=== PATIENT | female | born 1990 | race American Indian/Alaskan Native ===

== ENCOUNTER 2018-10-09 09:45 | Emergency (ER) | payer MEDICAID ==
[2018-10-09 10:06] VITALS: BP 130/77
--- NOTE | 2018-10-09 10:40 | Emergency Department Report ---
ED GI Bleed HPI - General Chief complaint: GI Bleed Stated complaint: BACK PAIN/BLEEDING FROM RECTUM Time Seen by Provider: 10/09/18 10:18 Source: patient Mode of arrival: Ambulatory Limitations: No Limitations - History of Present Illness Initial comments: reports low back (L) pain for a few days worse with movement better with rest states noticed streaks of BRB after bowel movements x 2 no abd pain, nvdc complaint: blood on toilet paper -: Gradual, days(s) (3) Radiation: none Severity scale (0 -10): 7 Quality: painless Consistency: intermittent Improves with: none Worsens with: none Associated Symptoms: denies other symptoms - Related Data Previous Rx's Medication Instructions Recorded Last Taken Type Docusate Sodium [Colace] 100 mg PO BID PRN #20 capsule 10/09/18 Unknown Rx Hydrocortisone [Anucort-HC SUPPOS] 25 mg RC BID #12 supp.rect 10/09/18 Unknown Rx cephALEXin [Keflex] 500 mg PO Q12HR #14 cap 10/09/18 Unknown Rx Allergies Allergy/AdvReac Type Severity Reaction Status Date / Time No Known Allergies Allergy Verified 10/09/18 10:03 ED Review of Systems ROS: Stated complaint: BACK PAIN/BLEEDING FROM RECTUM Other details as noted in HPI Comment: All other systems reviewed and negative Gastrointestinal: as per HPI, hematochezia Musculoskeletal: as per HPI, back pain ED Past Medical Hx - Past Medical History Previous Medical History?: No - Surgical History Past Surgical History?: No - Social History Smoking Status: Current Every Day Smoker - Medications Home Medications: Home Medications Medication Instructions Recorded Confirmed Last Taken Type Docusate Sodium [Colace] 100 mg PO BID PRN #20 capsule 10/09/18 Unknown Rx Hydrocortisone [Anucort-HC SUPPOS] 25 mg RC BID #12 supp.rect 10/09/18 Unknown Rx cephALEXin [Keflex] 500 mg PO Q12HR #14 cap 10/09/18 Unknown Rx ED Physical Exam - General Limitations: No Limitations General appearance: alert, in no apparent distress - Head Head exam: Present: atraumatic, normocephalic - Eye Eye exam: Present: normal appearance - ENT ENT exam: Present: mucous membranes moist - Neck Neck exam: Present: normal inspection - Respiratory Respiratory exam: Present: normal lung sounds bilaterally. Absent: respiratory distress - Cardiovascular Cardiovascular Exam: Present: regular rate, normal rhythm. Absent: systolic murmur, diastolic murmur, rubs, gallop - GI/Abdominal GI/Abdominal exam: Present: soft, normal bowel sounds. Absent: distended, tenderness, guarding, rebound - Rectal Rectal exam: Present: hemorrhoids (internal, no blood, exercise physiologist certified Sandhya RN) - Extremities Exam Extremities exam: Present: normal inspection, full ROM - Back Exam Back exam: Present: normal inspection, full ROM, paraspinal tenderness. Absent: CVA tenderness (R), CVA tenderness (L) - Neurological Exam Neurological exam: Present: alert, oriented X3, normal gait, reflexes normal. Absent: motor sensory deficit - Psychiatric Psychiatric exam: Present: normal affect, normal mood - Skin Skin exam: Present: warm, dry, intact, normal color. Absent: rash ED Course Vital Signs 10/09/18 10:03 Temperature 97.9 F Pulse Rate 87 Respiratory 18 Rate Blood Pressure 130/77 [Right] O2 Sat by Pulse 99 Oximetry ED Medical Decision Making - Lab Data Lab Results 10/09/18 Range/Units 10:58 Urine Color Yellow (Yellow) Urine Turbidity Cloudy (Clear) Urine pH 5.0 (5.0-7.0) Ur Specific [place] 1.027 (1.003-1.030) Urine Protein 30 mg/dl (Negative) mg/dL Urine Glucose (UA) Neg (Negative) mg/dL Urine Ketones Neg (Negative) mg/dL Urine Blood Mod (Negative) Urine Nitrite Neg (Negative) Ur Reducing Substances Not Reportable Urine Bilirubin Neg (Negative) Urine Ictotest Not Reportable Urine Urobilinogen 2.0 (<2.0) mg/dL Ur Leukocyte Esterase Lg (Negative) Urine WBC (Auto) 12.0 H (0.0-6.0) /HPF Urine RBC (Auto) 10.0 (0.0-6.0) /HPF U Epithel Cells (Auto) 12.0 (0-13.0) /HPF Urine Bacteria (Auto) 3+ (Negative) /HPF Urine Mucus 2+ /HPF Urine Yeast ([place]) 1+ /HPF Urine HCG, Qual Negative (Negative) - Medical Decision Making low back pain 2 episodes of bright red blood on toilet paper exam normal other than small internal hemorrhoid, no active bleeding labs felt unnecessary back pain- muscular vs uti no signs cord compression UA with large leukocytes culture sent and keflex written fu pcp - Differential Diagnosis hemorrhoid, GI bleed, UTI, muscular pain Critical care attestation.: If time is entered above; I have spent that time in minutes in the direct care of this critically ill patient, excluding procedure time. ED Disposition Clinical Impression: Acute UTI, Internal hemorrhoid Disposition: - TO HOME OR SELFCARE Is pt being admited?: No Condition: Good Instructions: Hemorrhoids (ED), Urinary Tract Infection in Women (ED) Prescriptions: cephALEXin [Keflex] 500 mg PO Q12HR #14 cap Docusate Sodium [Colace] 100 mg PO BID PRN #20 capsule PRN Reason: Constipation Hydrocortisone [Anucort-HC SUPPOS] 25 mg RC BID #12 supp.rect Referrals: RON NI MD [Primary Care Provider] - 3-5 Days Forms: Accompanied Note Time of Disposition: 11:43
[2018-10-09 11:24] LABS: HCG Qualitative,Urine Negative (Negative)
[2018-10-09 11:26] LABS: Bacteria,Urine 3+ /HPF (Negative); Bilirubin,Urine NEG (Negative); Blood,Urine MOD (Negative); Color,Urine Yellow (Yellow); Mucus,Urine 2+ /HPF
== END 2018-10-09 11:50 | disposition home or self-care (01) ==
LOC: ED 09:45
DX: K62.5 Hemorrhage of anus and rectum (principal); N39.0 Urinary tract infection, site not specified; F17.200 Nicotine dependence, unspecified, uncomplicated
CPT/HCPCS: 81001; 81025; 87086; 87591; 99283

== ENCOUNTER 2021-06-02 18:38 | Emergency (ER) | payer OTHER, MEDICAID ==
[2021-06-02 19:29] VITALS: BP 136/82
[2021-06-02] MEDS ORDERED: ACETAMINOPHEN 500 MG TAB PO ONE (20:03)
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
[2021-06-02 20:39] LABS: Basophils % (Auto) 0.2 % (0.0-1.8); Eosinophils # (Auto) 0.1 K/mm3 (0.0-0.4); Hematocrit 37.1 % (30.3-42.9); Hemoglobin 12.5 gm/dl (10.1-14.3); Lymphocytes # (Auto) 2.3 K/mm3 (1.2-5.4); Mean Corpuscular HGB Conc 34 % (30-34); Mean Corpuscular Volume 73 fl (79-97); Monocytes # (Auto) 0.7 K/mm3 (0.0-0.8); Monocytes % (Auto) 8.8 % (0.0-7.3); Platelet Count 239 K/mm3 (140-440); Red Blood Count 5.05 M/mm3 (3.65-5.03)
[2021-06-02 21:01] LABS: Bilirubin,Urine NEG (Negative); Blood,Urine NEG (Negative); Color,Urine Yellow (Yellow); Mucus,Urine 2+ /HPF
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
== END 2021-06-02 22:50 | disposition home or self-care (01) ==
LOC: ED 18:38
DX: O9A.211 Injury, poisoning and certain other consequences of external causes complicating pregnancy, first trimester (principal); S40.012A Contusion of left shoulder, initial encounter; M25.562 Pain in left knee; R10.31 Right lower quadrant pain; Z3A.13 13 weeks gestation of pregnancy; V43.52XA Car driver injured in collision with other type car in traffic accident, initial encounter; W22.10XA Striking against or struck by unspecified automobile airbag, initial encounter; Y93.89 Activity, other specified; Y92.89 Other specified places as the place of occurrence of the external cause; Y99.8 Other external cause status
CPT/HCPCS: 36415; 76801; 81001; 84702; 85025; 87086; 99284

== ENCOUNTER 2021-07-11 15:51 | Emergency (ER) | payer OTHER, MEDICAID ==
--- NOTE | 2021-07-11 16:31 | Emergency Department Report ---
ED Female HPI - General Chief complaint: Vaginal Bleeding Stated complaint: VAGINAL BLEEDING Time Seen by Provider: 07/11/21 16:29 Source: patient, RN notes reviewed, old records reviewed Mode of arrival: Ambulatory Limitations: No Limitations - History of Present Illness Initial comments: During the history and physical examination, I am chaperoned by Lela Irwin This patient is a 31-year-old female. She is 5, para 4. She is approximately 19 weeks gestation, and she follows at [facility]. The patient presents to the ER today with a complaint of painless vaginal bleeding. It started earlier on this week after vigorous sexual intercourse. It was worse yesterday, and is basically resolved today. She denies physical pain. She denies urinary symptoms. She reports minimal bloody discharge, from her vagina, but otherwise denies injuries and complaints. She is asking to be discharged. MD Complaint: vaginal bleeding -: days(s) Severity: mild Consistency: constant Improves with: none Worsens with: none Are you Now?: Yes Associated Symptoms: vaginal bleeding - Related Data Sexually active: Yes Previous Rx's Medication Instructions Recorded Last Taken Type Nitrofurantoin [place]/M-Cryst 100 mg PO Q12HR #14 capsule 07/11/21 Unknown Rx [Macrobid CAP] Allergies Allergy/AdvReac Type Severity Reaction Status Date / Time No Known Allergies Allergy Verified 10/09/18 10:03 ED Review of Systems ROS: Stated complaint: VAGINAL BLEEDING Other details as noted in HPI Constitutional: denies: fever Eyes: denies: eye discharge ENT: denies: epistaxis Respiratory: denies: cough Cardiovascular: denies: chest pain Gastrointestinal: denies: abdominal pain, nausea, vomiting, diarrhea Genitourinary: denies: urgency, dysuria, frequency Musculoskeletal: denies: back pain Neurological: denies: weakness Hematological/Lymphatic: denies: easy bleeding ED Past Medical Hx - Past Medical History Previous Medical History?: Yes Hx Hypertension: Yes - Surgical History Past Surgical History?: No - Social History Smoking Status: Unknown if ever smoked - Medications Home Medications: Home Medications Medication Instructions Recorded Confirmed Last Taken Type Nitrofurantoin [place]/M-Cryst 100 mg PO Q12HR #14 capsule 07/11/21 Unknown Rx [Macrobid CAP] ED Physical Exam - General Limitations: No Limitations General appearance: alert, in no apparent distress, obese - Head Head exam: Present: atraumatic, normocephalic - Eye Eye exam: Present: normal appearance, EOMI. Absent: nystagmus - ENT ENT exam: Present: normal exam, normal orophraynx, mucous membranes moist, normal external ear exam - Neck Neck exam: Present: normal inspection, full ROM. Absent: tenderness, meningismus - Respiratory Respiratory exam: Present: normal lung sounds bilaterally. Absent: respiratory distress, wheezes, rales, rhonchi, stridor, decreased breath sounds - Cardiovascular Cardiovascular Exam: Present: normal rhythm, tachycardia, normal heart sounds. Absent: bradycardia, irregular rhythm, systolic murmur, diastolic murmur, rubs, gallop - GI/Abdominal GI/Abdominal exam: Present: soft, other (Uterus is consistent with date). Absent: distended, tenderness, guarding, rebound, rigid, pulsatile mass - External exam: Present: normal external exam (With patient's permission, performed external gynecologic examination. Chaperoned by Lela Irwin). Absent: erythema, swelling, lesions, lacerations, ecchymosis, bleeding - Extremities Exam Extremities exam: Present: normal inspection, full ROM, other (2+ pulses noted in the bilateral upper and lower extremities. There is no palpable cord. negative Homans sign. Muscular compartments are soft. The pelvis is stable.). Absent: pedal edema, calf tenderness - Back Exam Back exam: Present: normal inspection, full ROM. Absent: tenderness, CVA tenderness (R), CVA tenderness (L), paraspinal tenderness, vertebral tenderness - Neurological Exam Neurological exam: Present: alert, oriented X3, normal gait, other (No facial droop. Tongue midline. Extraocular movements intact bilaterally. Facial sensation intact to light touch in V1, V2, V3 distribution bilaterally. 5 and a 5 strength in 4 extremities. Sensation intact to light touch in 4 extremities.). Absent: motor sensory deficit - Psychiatric Psychiatric exam: Present: normal affect, normal mood - Skin Skin exam: Present: warm, dry, intact, normal color. Absent: rash ED Course Vital Signs 07/11/21 07/11/21 07/11/21 15:57 18:51 18:53 Temperature 99.0 F Pulse Rate 104 H 104 H Respiratory 18 14 Rate Blood Pressure 126/68 Blood Pressure 115/64 [Left] O2 Sat by Pulse 98 100 100 Oximetry 07/11/21 19:37 Temperature Pulse Rate 104 H Respiratory 16 Rate Blood Pressure Blood Pressure 99/68 [Left] O2 Sat by Pulse 100 Oximetry ED Medical Decision Making - Lab Data Result diagrams: 07/11/21 17:41 Vital Signs 07/11/21 07/11/21 07/11/21 15:57 18:51 18:53 Temperature 99.0 F Pulse Rate 104 H 104 H Respiratory 18 14 Rate Blood Pressure 126/68 Blood Pressure 115/64 [Left] O2 Sat by Pulse 98 100 100 Oximetry Lab Results 07/11/21 07/11/21 07/11/21 Range/Units 17:02 17:30 17:41 WBC 8.7 (4.5-11.0) K/mm3 RBC 4.77 (3.65-5.03) M/mm3 Hgb 11.3 (10.1-14.3) gm/dl Hct 35.8 (30.3-42.9) % MCV 75 L (79-97) fl MCH 24 L (28-32) pg MCHC 31 (30-34) % RDW 15.4 H (13.2-15.2) % Plt Count 244 (140-440) K/mm3 Lymph % (Auto) 23.3 (13.4-35.0) % [place] % (Auto) 6.6 (0.0-7.3) % Eos % (Auto) 1.4 (0.0-4.3) % Baso % (Auto) 0.3 (0.0-1.8) % Lymph # (Auto) 2.0 (1.2-5.4) K/mm3 [place] # (Auto) 0.6 (0.0-0.8) K/mm3 Eos # (Auto) 0.1 (0.0-0.4) K/mm3 Baso # (Auto) 0.0 (0.0-0.1) K/mm3 Seg Neutrophils % 68.4 (40.0-70.0) % Seg Neutrophils # 5.9 (1.8-7.7) K/mm3 HCG, Quant (0-4) mIU/mL Urine Color Yellow (Yellow) Urine Turbidity Slightly-cloudy (Clear) Urine pH 8.0 H (5.0-7.0) Ur Specific [place] 1.017 (1.003-1.030) Urine Protein 30 mg/dl (Negative) mg/dL Urine Glucose (UA) Neg (Negative) mg/dL Urine Ketones Neg (Negative) mg/dL Urine Blood Sm (Negative) Urine Nitrite Pos (Negative) Urine Bilirubin Neg (Negative) Urine Urobilinogen < 2.0 (<2.0) mg/dL Ur Leukocyte Esterase Sm (Negative) Urine WBC (Auto) 38.0 H (0.0-6.0) /HPF Urine RBC (Auto) 10.0 (0.0-6.0) /HPF U Epithel Cells (Auto) 5.0 (0-13.0) /HPF Urine Bacteria (Auto) 2+ (Negative) /HPF Urine Mucus Few /HPF Blood Type O POSITIVE Antibody Screen Negative 07/11/21 Range/Units 17:41 WBC (4.5-11.0) K/mm3 RBC (3.65-5.03) M/mm3 Hgb (10.1-14.3) gm/dl Hct (30.3-42.9) % MCV (79-97) fl MCH (28-32) pg MCHC (30-34) % RDW (13.2-15.2) % Plt Count (140-440) K/mm3 Lymph % (Auto) (13.4-35.0) % [place] % (Auto) (0.0-7.3) % Eos % (Auto) (0.0-4.3) % Baso % (Auto) (0.0-1.8) % Lymph # (Auto) (1.2-5.4) K/mm3 [place] # (Auto) (0.0-0.8) K/mm3 Eos # (Auto) (0.0-0.4) K/mm3 Baso # (Auto) (0.0-0.1) K/mm3 Seg Neutrophils % (40.0-70.0) % Seg Neutrophils # (1.8-7.7) K/mm3 HCG, Quant 4595 H (0-4) mIU/mL Urine Color (Yellow) Urine Turbidity (Clear) Urine pH (5.0-7.0) Ur Specific [place] (1.003-1.030) Urine Protein (Negative) mg/dL Urine Glucose (UA) (Negative) mg/dL Urine Ketones (Negative) mg/dL Urine Blood (Negative) Urine Nitrite (Negative) Urine Bilirubin (Negative) Urine Urobilinogen (<2.0) mg/dL Ur Leukocyte Esterase (Negative) Urine WBC (Auto) (0.0-6.0) /HPF Urine RBC (Auto) (0.0-6.0) /HPF U Epithel Cells (Auto) (0-13.0) /HPF Urine Bacteria (Auto) (Negative) /HPF Urine Mucus /HPF Blood Type Antibody Screen - Radiology Data Radiology results: pending, report reviewed, image reviewed ULTRASOUND OBSTETRIC Indication: vag bleed Findings: There is a single intrauterine . BPD = 4.5 cm = 19 weeks, 4 day(s). Head circumference = 17.2 cm = 19 weeks, 5 day(s). Abdominal circumference = 13.3 cm = 18 weeks, 5 day(s). Femur length = 3.3 cm = 20 weeks, 2 day(s). Overall estimated sonographic age = 19 weeks, 4 day(s). heart rate is 151 beats per minute. position is cephalic. Cervix appears closed. movement is present. Placenta is posterior Maternal adnexa appear normal. Impression: 1. Single living intrauterine with estimated sonographic age of 19 weeks, 4 day(s). 2. No sonographic abnormality identified. Signer Name: Tay Cha MD Signed: 07/11/2021 4:35 PM Workstation Name: [id number] - Medical Decision Making Differential diagnosis, including but not limited to: Vaginal laceration, placenta previa, subchorionic hemorrhage, urinary tract infection Assessment and plan: 31-year-old female, who was afebrile, with reassuring vital signs (tachycardia likely secondary to physiology of ), presenting to the ER today with a complaint of painless vaginal bleeding, now resolved, without urinary symptoms. External vaginal examination unremarkable. Speci fically do not appreciate any bleeding, laceration, abscesses or infectious pathology. Abdomen soft and benign. Obstetrics ultrasound unremarkable, 19 weeks and 4 days. CBC acceptable, she is Rh+, urinalysis suggest pyuria with bacteriuria which is asymptomatic. Supportive care, avoidance of sexual activity and pelvic rest, antibiotics, outpatient follow-up with OB. Discussed this with the patient. She articulated understanding. All questions answered. Return precautions reviewed. Critical care attestation.: If time is entered above; I have spent that time in minutes in the direct care of this critically ill patient, excluding procedure time. ED Disposition Clinical Impression: Bacteriuria with pyuria, History of vaginal bleeding Qualifiers: Weeks of gestation: 19 weeks Qualified Code(s): Z3A.19 - 19 weeks gestation of Disposition: HOME / SELF CARE / HOMELESS Is pt being admited?: No Does the pt Need Aspirin: No Condition: Stable Instructions: Asymptomatic Bacteriuria Additional Instructions: Rest, avoid heavy lifting and strenuous physical activities. Engage in pelvic rest and avoid sexual activity until cleared to resume by your outpatient [facility] physician. Laboratory studies today demonstrated bacteria in urine, otherwise, ultrasound showed that the patient is 19 weeks and 4 days . No obvious abnormalities are noted on the ultrasound. Blood counts are stable, and the patient is found to be Rh+. We recommend follow-up with your outpatient [facility] doctor within the next week. Please take the antibiotics as directed. Please return to the emergency room right away with new pain, worsened pain, migration of pain, bleeding more than 2 pads soaked per hour, severe pain, nausea, vomiting, change in mental status, or any new, worsened or different symptoms not present on the initial emergency room evaluation Prescriptions: Nitrofurantoin [place]/M-Cryst [Macrobid CAP] 100 mg PO Q12HR #14 capsule Referrals: [facility] [Provider Group] - 3-5 Days Forms: Work/School Release Form(ED)
--- NOTE | 2021-07-11 17:39 | Ultrasound Report ---
ULTRASOUND OBSTETRIC Indication: vag bleed Findings: There is a single intrauterine . BPD = 4.5 cm = 19 weeks, 4 day(s). Head circumference = 17.2 cm = 19 weeks, 5 day(s). Abdominal circumference = 13.3 cm = 18 weeks, 5 day(s). Femur length = 3.3 cm = 20 weeks, 2 day(s). Overall estimated sonographic age = 19 weeks, 4 day(s). heart rate is 151 beats per minute. position is cephalic. Cervix appears closed. movement is present. Placenta is posterior Maternal adnexa appear normal. Impression: 1. Single living intrauterine with estimated sonographic age of 19 weeks, 4 day(s). 2. No sonographic abnormality identified. Signer Name: Tay Cha MD Signed: 07/11/2021 5:35 PM Workstation Name: [id number]
[2021-07-11 17:40] LABS: Bacteria,Urine 2+ /HPF (Negative); Bilirubin,Urine NEG (Negative); Blood,Urine SM (Negative); Color,Urine Yellow (Yellow); Mucus,Urine FEW /HPF; Urobilinogen,Urine < 2.0 mg/dL (<2.0)
[2021-07-11 17:54] LABS: Basophils % (Auto) 0.3 % (0.0-1.8); Eosinophils # (Auto) 0.1 K/mm3 (0.0-0.4); Eosinophils % (Auto) 1.4 % (0.0-4.3); Hematocrit 35.8 % (30.3-42.9); Hemoglobin 11.3 gm/dl (10.1-14.3); Lymphocytes % (Auto) 23.3 % (13.4-35.0); Mean Corpuscular HGB Conc 31 % (30-34); Mean Corpuscular Volume 75 fl (79-97); Monocytes # (Auto) 0.6 K/mm3 (0.0-0.8); Monocytes % (Auto) 6.6 % (0.0-7.3); Platelet Count 244 K/mm3 (140-440); Red Blood Count 4.77 M/mm3 (3.65-5.03); Red Cell Distribution Width 15.4 % (13.2-15.2)
[2021-07-11 19:38] VITALS: BP 99/68
== END 2021-07-11 20:01 | disposition home or self-care (01) ==
LOC: ED 15:51
DX: O26.892 Other specified pregnancy related conditions, second trimester (principal); R82.81 Pyuria; N93.8 Other specified abnormal uterine and vaginal bleeding; Z3A.19 19 weeks gestation of pregnancy; I10 Essential (primary) hypertension
CPT/HCPCS: 36415; 76805; 81001; 84702; 85025; 86850; 86900; 86901; 87086; 99284